=== PATIENT | male | born 1960 | race Two or more races ===

== ENCOUNTER 2021-02-08 11:56 | Emergency (ER) | payer OTHER ==
[2021-02-08] MEDS ORDERED: ACETAMINOPHEN TAB 500 MG TAB PO STA (13:00)
--- NOTE | 2021-02-08 13:08 | XR ---
EXAMINATION TYPE: XR chest 2V DATE OF EXAM: 02/08/2021 COMPARISON: 04/16/2015 INDICATION: Difficulty breathing TECHNIQUE: Frontal and lateral views of the chest are obtained. FINDINGS: The heart size is normal. The pulmonary vasculature is normal. Some patchy infiltrate appears to be at the right lung base. Patchy infiltrates in the right upper papo ng field. Mild increased lung markings aren't periphery of the left lung. Findings are nonspecific. C onsider atypical pneumonia. IMPRESSION: 1. Scattered bilateral mild increased lung markings are nonspecific. Correlate for atypical pneumonia .
[2021-02-08] MEDS ORDERED: SODIUM CHLORIDE 0.9% 500 ML 500 ML IV ONE (13:15)
--- NOTE | 2021-02-08 13:30 | ED ---
General Adult HPI - General Chief complaint: Shortness of Breath Stated complaint: SAI Time Seen by Provider: 02/08/21 12:47 Source: patient, RN notes reviewed, old records reviewed Mode of arrival: wheelchair Limitations: no limitations - History of Present Illness Initial comments: 60-year-old male with 3 days of cough congestion and fever. Patient has had some myalgias and generalized weakness. He's had mild dyspnea. He is not vaccinated as coronavirus. He's had some nausea without significant vomiting. Patient denies previous history of asthma or COPD. Denies chronic medical conditions. - Related Data Home Medications Medication Instructions Recorded Confirmed Aspirin [Adult Low Dose Aspirin EC] 81 mg PO DAILY 01/23/15 04/16/15 Methylphenidate HCl [Ritalin] 20 mg PO DAILY 01/23/15 04/16/15 Previous Rx's Medication Instructions Recorded Cyclobenzaprine [Flexeril] 10 mg PO TID #14 tab 04/16/15 Ibuprofen [Motrin] 800 mg PO Q6HR PRN #20 tab 04/16/15 Allergies Allergy/AdvReac Type Severity Reaction Status Date / Time No Known Allergies Allergy Verified 02/08/21 12:11 Review of Systems ROS Statement: Those systems with pertinent positive or pertinent negative responses have been documented in the HPI. ROS Other: All systems not noted in ROS Statement are negative. Past Medical History Past Medical History: Rheumatoid Arthritis (RA) History of Any Multi-Drug Resistant Organisms: None Reported Past Surgical History: No Surgical Hx Reported Past Psychological History: ADD/ADHD Smoking Status: Never smoker Past Alcohol Use History: Occasional Past Drug Use History: Marijuana General Exam Limitations: no limitations General appearance: alert, in no apparent distress Head exam: Present: atraumatic, normocephalic Eye exam: Present: normal appearance, PERRL ENT exam: Present: mucous membranes dry Neck exam: Present: normal inspection. Absent: tenderness, meningismus Respiratory exam: Present: rhonchi (Scattered rhonchi), other (Good air entry). Absent: respiratory distress Cardiovascular Exam: Present: regular rate, normal rhythm GI/Abdominal exam: Present: soft. Absent: distended, tenderness Extremities exam: Present: normal inspection, normal capillary refill. Absent: pedal edema Neurological exam: Present: alert, oriented X3, CN II-XII intact. Absent: motor sensory deficit Psychiatric exam: Present: normal affect, normal mood Skin exam: Present: warm, dry, intact. Absent: cyanosis, diaphoretic Course Vital Signs 02/08/21 02/08/21 12:06 13:07 Temperature 100.9 F H Pulse Rate 102 H Respiratory 24 19 Rate Blood Pressure 105/67 O2 Sat by Pulse 99 Oximetry EKG Findings - EKG Comments: EKG Findings:: EKG: Sinus tachycardia, ventricular rate of 111, MI interval 128, QRS duration 84, QTC 440, no ST segment elevation Medical Decision Making - Medical Decision Making 60-year-old male testing positive for coronavirus. Patient has normal oxygenation without respiratory distress. I did offer monoclonal antibodies and the patient agrees. These are administered in the emergency department. His chest x-ray shows a very mild bilateral pneumonia. He will monitor his symptoms closely and return as needed. - Lab Data Lab Results 02/08/21 Range/Units 12:00 Coronavirus (PCR) Detected A (Not Detectd) Disposition Clinical Impression: COVID-19 Disposition: HOME SELF-CARE Condition: Fair Instructions (If sedation given, give patient instructions): Coronavirus Disease 2019 (COVID-19) Additional Instructions: Please quarantined for 10 days. Is patient prescribed a controlled substance at d/c from ED?: No Referrals: Yari Villeda MD [Primary Care Provider] - 1-2 days
[2021-02-08] MEDS ORDERED: SODIUM CHLORIDE 0.9% 50 ML IVPB ONE (13:45)
[2021-02-08] MEDS ORDERED: CASIRIVIMAB/IMDEVIMAB (EUA) 1,200 MG in SODIUM CHLORIDE 0.9% 100 ML IVPB ONE (13:45)
[2021-02-08 16:54] VITALS: BP 155/70; PULSE 75; RESP 19; TEMP 99
== END 2021-02-08 16:55 | disposition home or self-care (01) ==
LOC: EC 11:56
DX: U07.1 COVID-19 (principal); F90.9 Attention-deficit hyperactivity disorder, unspecified type; F12.90 Cannabis use, unspecified, uncomplicated; Z79.82 Long term (current) use of aspirin
CPT/HCPCS: 99285; 93005; 87635; 71046; Q0243